=== PATIENT | male | born 1980 | race Two or more races ===

== ENCOUNTER 2018-03-14 04:32 | Emergency (ER) | payer SELFPAY ==
[~2018-03-14] VITALS: Ht 177.8 cm; Wt 102.0 kg
[2018-03-14] MEDS ORDERED: SODIUM CHLORIDE 0.9% 1,000 ML IV SCH (04:46)
[2018-03-14] MEDS ORDERED: METHYLPREDNISOLONE SOD SUCC 125 MG/2 ML VIAL IV ONE (05:00)
[2018-03-14] MEDS ORDERED: FAMOTIDINE 20MG/2ML VIAL IV ONE (05:00)
[2018-03-14] MEDS ORDERED: DIPHENHYDRAMINE 50MG/ML VIAL IV ONE (05:00)
[2018-03-14 08:45] VITALS: BP 135/74
== END 2018-03-14 08:49 | disposition home or self-care (01) ==
LOC: ER 04:32
DX: T78.1XXA Other adverse food reactions, not elsewhere classified, initial encounter (principal); R06.00 Dyspnea, unspecified; L50.0 Allergic urticaria; Z88.0 Allergy status to penicillin; I10 Essential (primary) hypertension; J45.909 Unspecified asthma, uncomplicated; X58.XXXA Exposure to other specified factors, initial encounter; Y93.89 Activity, other specified; Y92.511 Restaurant or cafe as the place of occurrence of the external cause; Z91.013 Allergy to seafood
CPT/HCPCS: 96374; 96375; 99284; J1200; J2930; J3490; J7030; Z7610